=== PATIENT | male | born 1990 | race Caucasian/White ===

== ENCOUNTER 2019-11-30 23:02 | Emergency (ER) | payer OTHER ==
[2019-11-30 23:08] VITALS: BP 133/100; PULSE 90; TEMP 97.2; BMI 51.5
--- NOTE | 2019-11-30 23:49 | PDOC ---
History of Present Illness - General Chief Complaint: Pain Stated Complaint: R PELVIC/FLANK PAIN Time Seen by Provider: 11/30/19 23:05 - History of Present Illness Initial Comments: 12/01/19 00:06 This 29-year-old man with history of intermittent dyspepsia and morbid obesity presents with right flank/RLQ discomfort for the last 4 days. The day prior to onset of the discomfort he had been seen by an orthopedist for low back pain. During that visit, the physician manipulated his right leg/hip (abducting/ abducting leg at hip joint). Discomfort is most pronounced when patient is lying supine or on his left side; no significant discomfort when standing. No worsening of pain with movement of his torso. In the last few days he has been intermittently nauseated but has no vomiting/diarrhea. There has been no fever/ chills. No history of dysuria/hematuria/urinary frequency. No strong family history of kidney stones. Medications as noted below No known allergies Non-smoker/no daily alcohol/other recreational drug use Past History - Past Medical History Allergies/Adverse Reactions: Allergies Allergy/AdvReac Type Severity Reaction Status Date / Time No Known Allergies Allergy Unverified 05/25/18 15:04 Home Medications: Ambulatory Orders NK [No Known Home Medication] 05/25/18 COPD: No GI Disorders: Yes (GERD) - Psycho Social/Smoking Cessation Hx Smoking History: Unknown if ever smoked Have you smoked in the past 12 months: No Number of Cigarettes Smoked Daily: 0 Information on smoking cessation initiated: No Hx Alcohol Use: No Drug/Substance Use Hx: No Review of Systems - Review of Systems Able to Perform ROS?: Yes Comments:: 12 point review of systems is negative except for what is noted in the history of present illness *Physical Exam - Vital Signs Last Vital Signs Temp Pulse Resp BP Pulse Ox 97.2 F L 90 14 133/100 100 11/30/19 23:05 11/30/19 23:05 11/30/19 23:05 11/30/19 23:05 11/30/19 23:05 - Physical Exam GENERAL: Morbidly obese adult male, alert and oriented x3 in no acute distress HEAD: Normal with no signs of trauma. EYES: PERRLA, EOMI, sclera anicteric, conjunctiva clear. ENT: Ears normal, nares patent, oropharynx clear without exudates. Moist mucous membranes. NECK: Normal range of motion, supple without lymphadenopathy, JVD, or masses. LUNGS: Breath sounds equal, clear to auscultation bilaterally. No wheezes, and no crackles. HEART:Regular rate and rhythm, normal S1 and S2 without murmur, rub or gallop. ABDOMEN:.normal bowel sounds. Moderate tenderness to palpation right flank/ right mid abdomen. No guarding or rebound.No masses No distention. EXTREMITIES: Normal range of motion, no edema. No clubbing or cyanosis. No erythema, or tenderness. NEUROLOGICAL: Cranial nerves II through XII grossly intact. Normal speech. No focal neurological deficits. MUSCULOSKELETAL: Back non-tender to palpation, no CVA tenderness SKIN: Warm, Dry, normal turgor, no rashes or lesions noted. ED Treatment Course - LABORATORY CBC & Chemistry Diagram: 12/01/19 00:30 12/01/19 00:30 Medical Decision Making - Medical Decision Making As noted above, this 29-year-old man presents with 4-day history of right flank/ right mid abdominal discomfort after having a physical exam by an orthopedist ( who manipulated patient's right hip during the exam). Patient has developed a few day history of nausea but no other associated symptoms. Exam as noted with mild tenderness of the right mid abdomen without peritoneal irritation signs. Because of the patient's mild tenderness and associated nausea, possibility of acute appendicitis or renal colic is present. CBC/urinalysis/chemistry profile sent All laboratory results (except for mildly elevated BUN of 20 with creatinine of 0.9) are normal without evidence of WBC elevation or microscopic hematuria/ other abnormality in the urinalysis. Much less likely that acute intra-abdominal/intrapelvic process ongoing in light of normal laboratory results. Patient discharged with instructions to continue acetaminophen as needed for pain (patient states that he has experienced epigastric discomfort in the past when using NSAIDs). He should return to the ER if he has worsening pain or develops fever/vomiting. He should follow-up with his PMD, Dr. Lee within the next several days Discharge - Discharge Information Problems reviewed: Yes Clinical Impression/Diagnosis: Abdominal wall strain Qualifiers: Encounter type: initial encounter Qualified Code(s): S39.011A - Strain of muscle, fascia and tendon of abdomen, initial encounter Condition: Stable Disposition: HOME - Follow up/Referral Referrals: Richard Lee MD [Primary Care Provider] - - Patient Discharge Instructions Patient Printed Discharge Instructions: DI for Abdominal Muscle Strain Additional Instructions: Continue acetaminophen as needed for discomfort Return to ER if you have persistent nausea or develop vomiting/fever/severe pain Follow-up with Dr. Lee within the next 5 to 7 days - Post Discharge Activity
[2019-12-01 00:53] LABS: BASO % 1.6 % (0-2.0); EOS % 2.1 % (0-4.5); HEMATOCRIT 47.6 % (35.4-49); HEMOGLOBIN 16.2 GM/dL (11.7-16.9); LYMPH % 28.8 % (8-40); MCH 30.3 pg (25.7-33.7); MCHC 34.1 g/dl (32.0-35.9); MEAN CELL VOLUME 88.9 fl (80-96); MEAN PLT VOLUME 9.4 fl (7.5-11.1); MONO % 8.8 % (3.8-10.2); NEUT % 58.7 % (42.8-82.8); PLATELET COUNT 300 K/MM3 (134-434); RBC 5.36 M/mm3 (4.00-5.60); RDW 13.4 % (11.9-15.9); WHITE BLOOD COUNT 8.8 K/mm3 (4.0-10.0)
[2019-12-01 00:55] LABS: PH,URINE 6.5 (5.0-8.0); URINE APPEARANCE CLEAR; URINE BILIRUBIN NEGATIVE (NEGATIVE); URINE COLOR YELLOW; URINE GLUCOSE (UA) NEGATIVE (NEGATIVE); URINE KETONE NEGATIVE (NEGATIVE); URINE LEUK ESTERASE NEGATIVE (NEGATIVE); URINE NITRITE NEGATIVE (NEGATIVE); URINE PROTEIN NEGATIVE (NEGATIVE)
[2019-12-01 01:26] LABS: BILIRUBIN,TOTAL 0.5 mg/dL (0.2-1); BLOOD UREA NITROGEN 12.2 mg/dL (7-18); CALCIUM 8.8 mg/dL (8.5-10.1); POTASSIUM 4.3 mmol/L (3.5-5.1); TOT PROT 7.8 g/dl (6.4-8.2)
== END 2019-12-01 01:47 | disposition home or self-care (01) ==
LOC: FER 23:02
DX: S39.011A Strain of muscle, fascia and tendon of abdomen, initial encounter (principal); X58.XXXA Exposure to other specified factors, initial encounter; Y93.89 Activity, other specified; Y92.89 Other specified places as the place of occurrence of the external cause
CPT/HCPCS: 36415; 80053; 81003; 85025; 99283-25

== ENCOUNTER 2020-07-23 17:59 | Emergency (ER) | payer OTHER ==
[2020-07-23] MEDS ORDERED: ACETAMINOPHEN 500 MG TABLET (FP) PO ONE (18:12)
[2020-07-23 18:19] VITALS: PULSE 88; TEMP 97.6; BMI 51.5
--- NOTE | 2020-07-23 18:20 | PDOC ---
Attending Attestation - Resident Resident Name: Stephanie Holman - ED Attending Attestation I have performed the following: I have examined & evaluated the patient, The case was reviewed & discussed with the resident, I agree w/resident's findings & plan, Exceptions are as noted - HPI HPI: 07/23/20 18:14 30 yo M p/w R sided low back/flank pain since this morning. States he woke up with the pain. Denies any heavy lifting or new exercises yesterday. Denies numbness or weakness in extremities. Denies h/o kidney stones. Not sexually active. - Physicial Exam PE: 07/23/20 18:20 General: well appearing Abdomen: obese limiting exam, soft, nt, no rebound, no guarding Back: no CVA tenderness, no midline tenderness Extremities: strength 5/5 b/l LE's, sensation intact to light touch Neuro: Aox3, speech fluent, face symmetric, gait steady, no focal deficits - Medical Decision Making 07/23/20 18:21 30 yo M p/w R low back pain, unremarkable physical exam, suspect muscle strain. Less likely kidney stones or UTI or acute choley. Plan: -labs -urine -pain control -reassess This clinical encounter is taking place during a federal and state health care emergency attributable to the novel Wagner Virus pandemic. The [employer] of the Department of Health and Human Services has declared, pursuant to the Public Health Service Act 319F-3 (42 U.S.C. 247d-6d), that a covered persons activities related to medical countermeasures against COVID-19 will be immune from liability under Federal and State law. Labs unremarkable. Urine with some blood. Bedside sono without evidence of hydro and low suspicion for obstructing stone as patient very well appearing and pain improved. Will d/c with return precautions, recommend PMD f/u. Discharge - Discharge Information Problems reviewed: Yes Clinical Impression/Diagnosis: Flank pain Condition: Good Disposition: HOME - Follow up/Referral Referrals: Richard Lee MD [Primary Care Provider] - - Patient Discharge Instructions Patient Printed Discharge Instructions: DI for Flank Pain Additional Instructions: You were seen in the ER for flank pain. The blood tests are normal. You may have a small kidney stone or it could just be a muscular pain. Drink plenty of water and take up to 600mg of ibuprofen (Advil or Motrin) every 8 hours as needed for pain. come back to the ER if you have worsening pain, fevers, problems with urinating or if any new or concerning symptom develops. Please follow up with your doctor in the next 2 weeks. Thank you - Post Discharge Activity
--- NOTE | 2020-07-23 18:21 | PDOC ---
History of Present Illness - General Chief Complaint: Back Pain Stated Complaint: RIGHT LOWER BACK PAIN Time Seen by Provider: 07/23/20 18:09 History Source: Patient Exam Limitations: No Limitations - History of Present Illness Initial Comments: 07/23/20 18:16 30y M with PMH of morbid obesity, currently being treated for OE presenting to the ER for sudden onset R lower back/flank pain radiating to the buttock when he woke up this AM. Pain is worse when he sits or lays down, better when standing. Pt states that pain was intense and was associated with nausea. Endorses burning with urination but no dysuria or hematuria. Denies vomiting, diarrhea, constipation, fever, chills, testicular pain, discharge, history of STDs, abdominal surgeries, numbness/tingling, weakness, saddle anesthesia, incontinence. 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 He is currently on Bactrim for OE. Denies headache, ear pain, discharge. Past History - Medical History Allergies/Adverse Reactions: Allergies Allergy/AdvReac Type Severity Reaction Status Date / Time No Known Allergies Allergy Verified 07/23/20 18:06 Home Medications: Ambulatory Orders Ibuprofen [Advil -] 400 mg PO ONCE 07/23/20 Sulfamethoxazole/Trimethoprim [Sulfamethoxazole-Tmp Ds Tablet] 1 each PO BID 07/23/20 COPD: No GI Disorders: Yes (GERD) - Psycho-Social/Smoking History Smoking History: Never smoked Have you smoked in the past 12 months: No Number of Cigarettes Smoked Daily: 0 - Substance Abuse Hx (Audit-C & DAST Scrn) How often the patient has a drink containing alcohol: Never Score: In Men: 4 or > Positive; In Women: 3 or > Positive: 0 Screen Result (Pos requires Nsg. Audit-10AR): Negative In the last yr the pt used illegal drug/Rx for NonMed reason: No Score: Yes response is considered Positive: 0 Screen Result (Positive result requires Nsg. DAST-10): Negative Review of Systems - Review of Systems Constitutional: No: Chills, Fever, Malaise, Weakness HEENTM: No: Ear Pain, Ear Discharge, Hearing Loss Respiratory: No: Cough, Shortness of Breath Cardiac (ROS): No: Chest Pain, Lightheadedness, Palpitations, Syncope ABD/GI: Yes: Nausea. No: Blood Streaked Bowels, Constipated, Diarrhea, Vomiting : Yes: Burning, Flank Pain. No: Dysuria, Discharge, Hematuria, Incontinence, Testicular Swelling, Testicular Pain Musculoskeletal: Yes: Back Pain. No: Joint Pain, Neck Pain, Joint Stiffness Integumentary: No: Symptoms Reported Neurological: No: Symptoms reported *Physical Exam - Vital Signs Last Vital Signs Temp Pulse Resp BP Pulse Ox 97.6 F 88 18 158/115 H 99 07/23/20 18:01 07/23/20 18:01 07/23/20 18:07/23/20 18:07/23/20 18:01 - Physical Exam General Appearance: Yes: Appropriately Dressed, Obese. No: Apparent Distress HEENT: positive: EOMI, NIKA, Other (external ear canals bilaterally with granulations) Neck: positive: Tender, Supple Respiratory/Chest: positive: Lungs Clear, Normal Breath Sounds. negative: Rales, Rhonchi, Stridor, Wheezing Cardiovascular: positive: Regular Rhythm, Regular Rate, S1, S2. negative: Edema, JVD, Murmur Gastrointestinal/Abdominal: positive: Normal Bowel Sounds, Soft. negative: Tender, Distended, Guarding, Rebound Male Genitalia: positive: normal genitalia. negative: discharge, testicular tenderness, testicular mass, epididymus tender, inguinal hernia, hernia Musculoskeletal: negative: CVA Tenderness, CVA Tenderness (R), CVA Tenderness (L), Decreased Range of Motion, Muscle Spasm, Vertebral Tenderness Extremity: positive: Pelvis Stable. negative: Pedal Edema, Swelling Integumentary: positive: Normal Color, Dry, Warm Neurologic: positive: director of assisted living II-XII NML intact, Fully Oriented, Alert, Normal Mood/Affect, Normal Response, Motor Strength 5/5 ED Treatment Course - LABORATORY CBC & Chemistry Diagram: 07/23/20 18:20 07/23/20 18:20 Medical Decision Making - Medical Decision Making 07/23/20 18:19 30y M presenting to the ER for R lower back/flank pain radiating to the buttock. vitals mildly hypertensive, afebrile, normocardic. PE: obese, no flank tenderness, no spinal tenderness, negative SLR, normal gu exam. ear canal with granulation tissue ddx includes msk pain, appendicitis, uti/pyelonephritis, stone, cholecystitis. less likely colitis, pancreatitis, AAA, sbo -basic labs to check for white count, electrolytes and lfts, lipase -ua -Tylenol. -pt being treated for OE, has follow up, symptoms are improving. 07/23/20 19:07 labs wnl, no leukocytosis, normal chemistry. ua shows some blood. pt is well appearing, tolerating po, afebrile. will dc home. advised to take motrin for pain and f/u with pmd. Discharge - Discharge Information Problems reviewed: Yes Clinical Impression/Diagnosis: Flank pain Condition: Good Disposition: HOME - Admission No - Follow up/Referral Referrals: Richard Lee MD [Primary Care Provider] - - Patient Discharge Instructions Patient Printed Discharge Instructions: DI for Flank Pain Additional Instructions: You were seen in the ER for flank pain. The blood tests are normal. You may have a small kidney stone or it could just be a muscular pain. Drink plenty of water and take up to 600mg of ibuprofen (Advil or Motrin) every 8 hours as needed for pain. come back to the ER if you have worsening pain, fevers, problems with urinating or if any new or concerning symptom develops. Please follow up with your doctor in the next 2 weeks. Thank you - Post Discharge Activity
[2020-07-23] MEDS ORDERED: ACETAMINOPHEN 500 MG TABLET (FP) ONE (18:28)
[2020-07-23 18:43] LABS: HEMOGLOBIN 15.9 GM/dl (11.7-16.9); MEAN PLT VOLUME 9.3 fl (7.5-11.1)
[2020-07-23 18:45] LABS: BASO % 0.7 % (0-2.0); EOS % 1.1 % (0-4.5); HEMATOCRIT 46.5 % (35.4-49); LYMPH % 25.5 % (8-40); MCH 30.6 pg (25.7-33.7); MCHC 34.1 g/dl (32.0-35.9); MEAN CELL VOLUME 89.8 fl (80-96); MONO % 6.8 % (3.8-10.2); NEUT % 65.9 % (42.8-82.8); PLATELET COUNT 299 K/MM3 (134-434); RBC 5.17 M/mm3 (4.00-5.60); RDW 12.6 % (11.9-15.9); WHITE BLOOD COUNT 7.5 K/mm3 (4.0-10.8)
[2020-07-23 18:46] LABS: EPITHELIAL CELLS MANY /hpf
[2020-07-23 18:51] LABS: ALBUMIN 3.9 g/dl (3.4-5.0); BILIRUBIN,TOTAL 0.7 mg/dl (0.2-1); CALCIUM 8.8 mg/dl (8.5-10); CREATININE 1.3 mg/dl (0.55-1.3); POTASSIUM 3.9 mmol/L (3.5-5.1); TOT PROT 7.5 g/dl (6.4-8.2)
[2020-07-23 19:13] VITALS: BP 143/95
== END 2020-07-23 19:12 | disposition home or self-care (01) ==
LOC: FER 17:59
DX: R10.9 Unspecified abdominal pain (principal)
CPT/HCPCS: 36415; 80053; 81003; 81015; 83690; 85025; 87086; 99283-25

== ENCOUNTER → 2022-02-10 | Day surgery (SDC) | payer OTHER | END | disposition home or self-care (01) | LOC: JRADIR 11:07 | PROVIDERS: ATTEND Internal Medicine | PROC: BW4FZZZ Ultrasonography of Neck (ICD-10-PCS; principal; 2022-02-10) | DX: E04.1 Nontoxic single thyroid nodule (principal); Z53.8 Procedure and treatment not carried out for other reasons | CPT/HCPCS: 10005; 76942 ==

== ENCOUNTER 2022-05-31 13:35 | Emergency (ER) | payer OTHER ==
[2022-05-31 13:55] VITALS: BP 130/83; PULSE 87; TEMP 97.8; BMI 47.5
== END 2022-05-31 14:25 | disposition home or self-care (01) ==
LOC: FER 13:35
DX: S69.92XA Unspecified injury of left wrist, hand and finger(s), initial encounter (principal); W23.0XXA Caught, crushed, jammed, or pinched between moving objects, initial encounter; Y93.67 Activity, basketball
CPT/HCPCS: 73130-TC-LT-FY; 99283-25

== ENCOUNTER 2022-07-13 16:29 | Emergency (ER) | payer OTHER ==
[2022-07-13 16:39] VITALS: BP 155/94; PULSE 93; RESP 18; TEMP 99; BMI 47.5
== END 2022-07-13 17:55 | disposition home or self-care (01) ==
LOC: FER 16:29
DX: U07.1 COVID-19 (principal)
CPT/HCPCS: 0241U-QW; 99283-25

== ENCOUNTER 2023-02-26 22:09 | Emergency (ER) | payer OTHER ==
[2023-02-26] MEDS ORDERED: SODIUM CHLORIDE 1,000 ML IV ONE (22:21)
[2023-02-26] MEDS ORDERED: KETOROLAC TROMETHAMINE 30 MG/1 ML VIAL IVPUSH ONE (22:25)
[2023-02-26] MEDS ORDERED: IBUPROFEN 600 MG TABLET (FP) PO ONE (22:31)
[2023-02-26] MEDS ORDERED: KETOROLAC TROMETHAMINE 30 MG/1 ML VIAL ONE (22:58)
[2023-02-26 23:08] LABS: HEMATOCRIT 47.8 % (35.4-49); HEMOGLOBIN 16.1 G/dL (11.7-16.9); MCH 30.1 pg (25.7-33.7); MCHC 33.7 g/dl (32.0-35.9); MEAN CELL VOLUME 89.3 fl (80-96); MEAN PLT VOLUME 9.4 fl (7.5-11.1); PLATELET COUNT 312.6 10^3/uL (134-434); RBC 5.35 10^6/uL (4.00-5.60); RDW 13.9 % (11.9-15.9); WHITE BLOOD COUNT 13.9 10^3/uL (4.0-10.8)
[2023-02-26 23:27] LABS: BILIRUBIN,TOTAL 0.6 mg/dl (0.2-1); CALCIUM 9.3 mg/dl (8.5-10); CREATININE 0.8 mg/dl (0.55-1.3); TOT PROT 7.9 g/dl (6.4-8.2)
[2023-02-27 00:41] VITALS: RESP 18; BMI 50.1
[2023-02-27 00:48] VITALS: BP 154/95; PULSE 88; TEMP 98
== END 2023-02-27 01:05 | disposition home or self-care (01) ==
LOC: FER 22:09
PROC: 3E033GC Introduction of Other Therapeutic Substance into Peripheral Vein, Percutaneous Approach (ICD-10-PCS; principal; 2023-02-26)
DX: R10.9 Unspecified abdominal pain (principal)
CPT/HCPCS: 36415; 74176-TC; 80053; 81003; 85027; 99284-25

== ENCOUNTER 2023-05-14 19:01 | Emergency (ER) | payer OTHER ==
[2023-05-14 19:21] VITALS: BP 155/82; PULSE 81; RESP 18; TEMP 98.3; BMI 49.9
== END 2023-05-14 20:39 | disposition home or self-care (01) ==
LOC: FER 19:01
DX: S93.504A Unspecified sprain of right lesser toe(s), initial encounter (principal); W22.8XXA Striking against or struck by other objects, initial encounter; Y93.9 Activity, unspecified; Y92.9 Unspecified place or not applicable
CPT/HCPCS: 73660-TC-FY; 99283-25

== ENCOUNTER 2024-02-25 20:58 | Emergency (ER) | payer OTHER ==
[2024-02-25 21:09] VITALS: RESP 18; TEMP 98; BMI 50.8
[2024-02-25 21:59] VITALS: BP 139/95; PULSE 108
[2024-02-25] MEDS: CIPROFLOXACIN 500 MG TABLET (RESTRICTED TO ID) PO ONE (22:08)
[2024-02-25] MEDS ORDERED: CIPROFLOXACIN 250 MG TABLET (RESTRICTED TO ID) PO ONE (22:08)
== END 2024-02-25 22:10 | disposition home or self-care (01) ==
LOC: FER 20:58
DX: R30.0 Dysuria (principal)
CPT/HCPCS: 81003; 87086; 99283-25

== ENCOUNTER 2024-03-17 21:40 | Emergency (ER) | payer OTHER ==
[2024-03-17 22:06] VITALS: BP 149/96; PULSE 113; RESP 16; TEMP 98.4; BMI 52.7
[2024-03-17 23:03] LABS: HEMATOCRIT 45.7 % (35.4-49); HEMOGLOBIN 15.3 G/dL (11.7-16.9); MCH 29.7 pg (25.7-33.7); MCHC 33.4 g/dl (32.0-35.9); PLATELET COUNT 243.5 10^3/uL (134-434); RBC 5.14 10^6/uL (4.00-5.60); RDW 14.3 % (11.9-15.9)
[2024-03-17 23:17] LABS: ALBUMIN 4.1 g/dl (3.4-5.0); BILIRUBIN,TOTAL 0.5 mg/dl (0.2-1); CALCIUM 9.4 mg/dl (8.5-10.1); POTASSIUM 3.7 mmol/L (3.5-5.1); TOT PROT 7.2 g/dl (6.4-8.2)
== END 2024-03-18 01:37 | disposition home or self-care (01) ==
LOC: FER 21:40
DX: R30.0 Dysuria (principal); R10.30 Lower abdominal pain, unspecified
CPT/HCPCS: 36415; 74176-TC; 80053; 81003; 81015; 85027; 99284-25